=== PATIENT | female | born 1970 ===

== ENCOUNTER → 2018-10-03 15:10 | Day surgery (SDC) | payer OTHER ==
[~2018-10-03 15:10] MED LIST: Bacitracin OINTMENT* 0.5% 0.5 oz TUBE ONE; Buffered Lidocaine 1% SYRIN* 1 ML/SYRINGE INTRADERM ONE; Ibuprofen TAB* 400 MG ONE; Lactated Ringers 1000 ML Bag* 1,000 ML IV SCH; Lidocain 1% EPI 1:100,000 * 30 ML MDV ONE; Lidocaine 2% PF * 5 ML VIAL ONE; Lidocaine 4% TOPICAL* 50 ML TOP.SOLN ONE; Midazolam* 1 MG/ML 2 ML VIAL (2 MG) ONE; Naloxone* 0.4 MG/ML 1 ML VIAL IV PRN; Ofloxacin 0.3% (Ear Drop)* 5 ml BTL ONE; Oxymetazoline 0.05% NASAL SPR* 15 ML BTL ONE; Propofol* 10 MG/ML 20 ML BTL ONE; fentaNYL* 50 MCG/ML 2 ML VIAL (100 MCG VIAL) IV PRN; fentaNYL* 50 MCG/ML 2 ML VIAL (100 MCG VIAL) ONE
[2018-10-03 17:08] VITALS: BP 138/87
--- NOTE | 2018-10-03 23:57 | OP ---
DATE OF OPERATION: 10/03/18 - [facility] DATE OF : 66 SURGEON: Raciel Kim M.D. PEANUT SEPARATOR: None. ANESTHESIA: General. 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 OPERATIVE PROCEDURE: Left myringotomy tube placement, left eustachian tube dilation, and bilateral inferior turbinate reduction. ESTIMATED BLOOD LOSS: Negligible. FINDINGS: Retraction of tympanic membrane with serous effusion and left eustachian tube orifice inflammation as well as bilateral inferior turbinate hypertrophy. SPECIMENS: None. DETAILS OF PROCEDURE: This is a 48-year-old woman who has had longstanding nasal airway obstruction and lifelong problems with recurrent infections and eustachian tube dysfunction on the left and several years ago had a canal wall up mastoidectomy done for cholesteatoma, which has been successful, but the patient has had persistent recurrent serous otitis media with retraction of the tympanic membrane. DESCRIPTION OF PROCEDURE: On 10/03/18, the patient was brought to the operating room. General anesthesia was induced and LMA was placed. The patient was draped and a time-out was performed. The left ear was addressed first. An anterior myringotomy was made. Serous fluid was suctioned out in the middle ear space and an Parham beveled grommet tube was placed followed by Floxin drops and a cotton ball. Cottonoid pledgets soaked with Afrin in 4% lidocaine was placed into each nasal cavity. Once adequate time was allotted for vasoconstriction, the turbinate reduction procedure was begun. Turbinates were both infiltrated with approximately 4 cc of 1% lidocaine with 1:100,000 epinephrine. They were infractured. Multiple passes were made through each turbinate with the Elmed bipolar device and then the turbinates were outfractured. At this point, a 0-degree rigid endoscope was brought into the field. The left eustachian tube orifice was examined. The Acclarent eustachian tube balloon was then brought into the field and was directed back into the left side of the nasopharynx. The balloon was deployed at the eustachian tube orifice and advanced freely into the eustachian tube. The balloon was deployed and left in place for 2 minutes and it was then removed. There was no bleeding from this portion of the procedure. Once the eustachian tube dilation was completed, the patient was then returned to the care of the anesthesiologist, extubated, and delivered to the PACU in stable condition. [id number]/[facility] #: [id number] TRISH
== END | disposition home or self-care (01) ==
LOC: OR 15:10
PROVIDERS: ATTEND Otolaryngology
DX: H65.22 Chronic serous otitis media, left ear (principal); J34.3 Hypertrophy of nasal turbinates; H69.82 Other specified disorders of Eustachian tube, left ear; H71.02 Cholesteatoma of attic, left ear; Z72.0 Tobacco use; K21.9 Gastro-esophageal reflux disease without esophagitis; F41.9 Anxiety disorder, unspecified
CPT/HCPCS: A9270-GY; J2250; J2704; J3010